=== PATIENT | female | born 1955 | race Caucasian/White ===

== ENCOUNTER 2019-09-03 12:20 | Emergency (ER) | payer BC, OTHER ==
[2019-09-03 12:45] VITALS: BMI 32.0
--- NOTE | 2019-09-03 13:31 | PDOC ---
*Physical Exam - Vital Signs Last Vital Signs Temp Pulse Resp BP Pulse Ox 97.9 F 86 18 121/73 98 09/03/19 12:41 09/03/19 12:41 09/03/19 12:41 09/03/19 12:41 09/03/19 12:41 - Physical Exam 09/03/19 13:30 The patient was examined by [JAISON Purcell] under my direct supervision. I personally evaluated the patient. I concur with the above findings and the plan of care. ED Treatment Course - LABORATORY CBC & Chemistry Diagram: 09/03/19 14:15 09/03/19 14:15 Discharge - Discharge Information Problems reviewed: Yes Clinical Impression/Diagnosis: Influenza Condition: Good Disposition: HOME - Follow up/Referral - Patient Discharge Instructions Patient Printed Discharge Instructions: DI for Influenza -- Adult Additional Instructions: Continue take your inhaler and take your Tamiflu as prescribed. Drink plenty of fluids not containing sugar and avoid carbohydrates as your sugar was high here likely due to the steroids you were given yesterday and your diet. - Post Discharge Activity Work/Back to School Note: Back to Work
--- NOTE | 2019-09-03 13:54 | PDOC ---
History of Present Illness - General Chief Complaint: Pain Stated Complaint: FLU SYMPTOMS Time Seen by Provider: 09/03/19 13:23 History Source: Patient Exam Limitations: No Limitations - History of Present Illness Initial Comments: 09/03/19 14:50 63-year-old female presents the ED with complaints of bilateral chest pain worsened with deep breathing and movement along with shortness of breath. Patient was given Tamiflu along with inhaler 2 days ago for treatment of influenza. Patient states had a chest x-ray but no lab work done at the time is concerned that this may be cardiac related. Patient denies lower extremity edema, recent travel or surgery. Plan: EKG, chest x-ray and labs. Is this a multiple visit Asthma Patient?: No Timing/Duration: intermittent Severity: mild Associated Symptoms: reports: chest pain (rib pain), shortness of breath Past History - Travel Traveled outside of the country in the last 30 days: No Close contact w/someone who was outside of country & ill: No - Past Medical History Allergies/Adverse Reactions: Allergies Allergy/AdvReac Type Severity Reaction Status Date / Time No Known Allergies Allergy Verified 09/03/19 12:45 COPD: Yes - Surgical History Abdominal Surgery: Yes Cholecystectomy: Yes - Psycho Social/Smoking Cessation Hx Smoking History: Never smoked Patient Lives Alone: No Lives with/in: spouse/SO Review of Systems - Review of Systems Able to Perform ROS?: No Constitutional: No: Symptoms Reported HEENTM: No: Symptoms Reported Respiratory: Yes: Symptoms reported, Cough, Shortness of Breath Cardiac (ROS): Yes: Chest Tightness : No: Symptoms Reported Musculoskeletal: No: Symptoms Reported Integumentary: No: Symptoms Reported Neurological: No: Symptoms reported Endocrine: No: Symptoms Reported Hematologic/Lymphatic: No: Symptoms Reported *Physical Exam - Vital Signs Last Vital Signs Temp Pulse Resp BP Pulse Ox 97.9 F 86 18 121/73 98 09/03/19 12:41 09/03/19 12:41 09/03/19 12:41 09/03/19 12:41 09/03/19 12:41 - Physical Exam General Appearance: Yes: Nourished, Appropriately Dressed. No: Apparent Distress HEENT: negative: Pale Conjunctivae Neck: positive: Supple Respiratory/Chest: positive: Chest Tender (maureen ribs), Lungs Clear, Normal Breath Sounds. negative: Respiratory Distress Cardiovascular: positive: Regular Rhythm, Regular Rate. negative: Murmur Gastrointestinal/Abdominal: positive: Soft. negative: Tenderness Integumentary: positive: Normal Color, Warm, Moist Neurologic: positive: Motor Strength 5/5 (ambulatory). negative: Normal Mood/ Affect (appears anxious) Heart Score/ECG Review - ECG Intrepretation Rhythm: Regular Rhythm (Rate 85 normal sinus rhythm with no ST elevation or depression noted) ED Treatment Course - LABORATORY CBC & Chemistry Diagram: 09/03/19 14:15 09/03/19 14:15 - RADIOLOGY Radiology Studies Ordered: Category Date Time Status CHEST PA & LAT [RAD] Stat Radiology 09/03/19 13:27 Ordered Medical Decision Making - Medical Decision Making 09/03/19 14:49 Complaint: Bilateral chest tightness along with continued shortness of breath despite being given inhaler and Tamiflu 2 days ago for treatment of influenza. Patient denies fever, chills, headache, weakness, vomiting, change in appetite Exam: Patient with normal breath sounds vital signs stable with bilateral rib tenderness. Plan: Chest x-ray, EKG labs if negative discharge home. Patient offered Tylenol but refused 09/03/19 15:22 Laboratory Tests 09/03/19 09/03/19 14:15 14:15 WBC 5.9 Hgb 14.1 Hct 41.1 Absolute Neuts (auto) 3.5 Sodium 133 L Potassium 4.0 Chloride 101 Carbon Dioxide 24 Anion Gap 8 BUN 16.5 Creatinine 0.9 Est GFR (CKD-EPI)NonAf 68.53 Calcium 9.5 Total Bilirubin 0.3 AST 20 ALT 35 Alkaline Phosphatase 108 Creatine Kinase 142 Troponin I < 0.02 Total Protein 7.4 Albumin 3.7 Patient was drinking soda and eating M&Ms before blood draw patient has no complaints and states is feeling better. Discharge - Discharge Information Problems reviewed: Yes Clinical Impression/Diagnosis: Influenza Condition: Good Disposition: HOME - Follow up/Referral - Patient Discharge Instructions Patient Printed Discharge Instructions: DI for Influenza -- Adult Additional Instructions: Continue take your inhaler and take your Tamiflu as prescribed. Drink plenty of fluids not containing sugar and avoid carbohydrates as your sugar was high here likely due to the steroids you were given yesterday and your diet. - Post Discharge Activity
[2019-09-03 14:40] LABS: BASO % 0.7 % (0-2.0); EOS % 1.5 % (0-4.5); HEMATOCRIT 41.1 % (32.4-45.2); HEMOGLOBIN 14.1 GM/dL (10.7-15.3); LYMPH % 29.1 % (8-40); MCH 29.8 pg (25.7-33.7); MCHC 34.3 g/dl (32.0-36.0); MEAN CELL VOLUME 86.9 fl (80-96); MEAN PLT VOLUME 9.1 fl (7.5-11.1); MONO % 8.7 % (3.8-10.2); PLATELET COUNT 238 K/MM3 (134-434); RBC 4.73 M/mm3 (3.60-5.2); RDW 13.4 % (11.6-15.6); WHITE BLOOD COUNT 5.9 K/mm3 (4.0-10.0)
[2019-09-03 15:10] LABS: ALBUMIN 3.7 g/dl (3.4-5.0); ALK PHOS 108 U/L (45-117); ANION GAP 8 MMOL/L (8-16); BILIRUBIN,TOTAL 0.3 mg/dL (0.2-1); BLOOD UREA NITROGEN 16.5 mg/dL (7-18); CALCIUM 9.5 mg/dL (8.5-10.1); CHLORIDE 101 mmol/L (98-107); CO2 24 mmol/L (21-32); CREATININE 0.9 mg/dL (0.55-1.3); GLUCOSE,RANDOM 357 mg/dL (74-106); SGOT/AST 20 U/L (15-37); SGPT/ALT 35 U/L (13-61); SODIUM 133 mmol/L (136-145); TOT PROT 7.4 g/dl (6.4-8.2)
[2019-09-03 15:38] VITALS: BP 132/83; PULSE 75; TEMP 98.1
--- NOTE | 2019-09-04 14:27 | EKG ---
Test Reason : Blood Pressure : / mmHG Vent. Rate : 085 BPM Atrial Rate : 085 BPM P-R Int : 130 ms QRS Dur : 084 ms QT Int : 374 ms P-R-T Axes : 069 069 025 degrees QTc Int : 445 ms NORMAL SINUS RHYTHM POSSIBLE LEFT ATRIAL ENLARGEMENT BORDERLINE ECG NO PREVIOUS ECGS AVAILABLE Confirmed by COTY CATHERINE, CHAPITO ([id number]) on 09/04/2019 2:27:02 PM Referred By: Confirmed By:CHAPITO ANSARI MD
== END 2019-09-03 15:38 | disposition home or self-care (01) ==
LOC: JER 12:20
DX: J11.1 Influenza due to unidentified influenza virus with other respiratory manifestations (principal); J44.9 Chronic obstructive pulmonary disease, unspecified
CPT/HCPCS: 36415; 71046-TC-FY; 80053; 82550; 84484; 85025; 93005; 93010; 99283-25

== ENCOUNTER 2019-09-22 05:27 | Emergency (ER) | payer BC ==
[2019-09-22 06:50] VITALS: TEMP 97.8; BMI 33.8
[2019-09-22] MEDS ORDERED: SULFAMETHOXAZOLE/TRIMETHOPRIM 800MG/160MG D.S. TABLET PO ONE (08:09)
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
[2019-09-22] MEDS ORDERED: SULFAMETHOXAZOLE/TRIMETHOPRIM 800MG/160MG D.S. TABLET ONE (09:42)
[2019-09-22 09:54] VITALS: PULSE 88
[2019-09-22 09:56] VITALS: BP 138/68
== END 2019-09-22 09:48 | disposition home or self-care (01) ==
LOC: JER 05:27
PROC: 0HQ0XZZ Repair Scalp Skin, External Approach (ICD-10-PCS; principal; 2019-09-22)
DX: S01.01XA Laceration without foreign body of scalp, initial encounter (principal); L02.415 Cutaneous abscess of right lower limb; Y04.2XXA Assault by strike against or bumped into by another person, initial encounter; Y93.89 Activity, other specified; Y92.59 Other trade areas as the place of occurrence of the external cause; Y99.8 Other external cause status; F10.929 Alcohol use, unspecified with intoxication, unspecified; J44.9 Chronic obstructive pulmonary disease, unspecified; Y07.9 Unspecified perpetrator of maltreatment and neglect
CPT/HCPCS: 70450-TC; 99284-25